=== PATIENT | male | born 1975 | race Two or more races ===

== ENCOUNTER 2024-04-11 14:17 | Emergency (ER) | payer MEDICAID ==
[~2024-04-11] VITALS: Ht 172.7 cm; Wt 84.4 kg
[2024-04-11 16:11] LABS: Chloride 102 mmol/L (98-107); Potassium 3.9 mmol/L (3.5-5.1); Sodium 135 mmol/L (136-145)
[2024-04-11 16:12] LABS: Anion Gap 8 (5-15); Calcium 9.5 mg/dL (8.7-10.4); Carbon Dioxide 25 mmol/L (20-30)
[2024-04-11 16:17] LABS: BUN/Creatinine Ratio 11.2 (10.0-20.0); Blood Alcohol < 3.0 mg/dL (<10); Blood Urea Nitrogen 12 mg/dL (9-23); Glucose 115 mg/dL (74-106)
[2024-04-11] MEDS ORDERED: CHL10C PO (16:56)
[2024-04-11 18:07] VITALS: TEMP 98.3
[2024-04-11] MEDS: SODIUM CHLORIDE 0.9% 1,000 ML IV ONE (18:35)
[2024-04-11] MEDS: LORazepam 2MG/ML-1ML VIAL IV ONE (19:28)
[2024-04-11 19:32] VITALS: BP 137/86; PULSE 60; RESP 16; O2SAT 97
== END 2024-04-11 19:13 | disposition home or self-care (01) ==
LOC: ER 14:17
DX: F10.239 Alcohol dependence with withdrawal, unspecified (principal); F41.9 Anxiety disorder, unspecified; Y90.8 Blood alcohol level of 240 mg/100 ml or more
CPT/HCPCS: 36415; 80048; 80320; 96361; 96374; 99283; J2060; J7030